=== PATIENT | male | born 1955 | race Hispanic/Latino ===

== ENCOUNTER 2018-02-04 08:08 | Day surgery (SDC) | payer MEDICARE ==
[2018-01-27 12:29] VITALS: BMI 29.7
[2018-02-04] MEDS ORDERED: Simethicone 40 mg/0.6 ml Liquid (30 ml) ONE (08:54)
[2018-02-04] MEDS ORDERED: Propofol 10 mg/ml Inj (20 ML) ONE (09:06)
[2018-02-04] MEDS ORDERED: Naloxone 0.4 mg/ml Inj (Adult) ONE (09:57)
[2018-02-04] MEDS ORDERED: Sodium Chloride 0.9% 1,000 ML IV SCH (11:00)
[2018-02-04 12:04] VITALS: BP 131/70; PULSE 60; RESP 15; TEMP 97.6; O2SAT 97
== END 2018-02-04 12:15 | disposition home or self-care (01) ==
LOC: ENDO 08:08
PROVIDERS: ATTEND Internal Medicine
DX: Z12.11 Encounter for screening for malignant neoplasm of colon (principal); D12.4 Benign neoplasm of descending colon; D12.5 Benign neoplasm of sigmoid colon; D12.3 Benign neoplasm of transverse colon; K57.30 Diverticulosis of large intestine without perforation or abscess without bleeding; K64.8 Other hemorrhoids; K21.9 Gastro-esophageal reflux disease without esophagitis; K29.70 Gastritis, unspecified, without bleeding; K31.7 Polyp of stomach and duodenum; Z87.891 Personal history of nicotine dependence
CPT/HCPCS: 43236; 43239; 43251; 45380; 45381; 45385; 88305; 88342; J2310; J2704; J2765; J3010; J7040 ×2